=== PATIENT | female | born 1960 | race Caucasian/White ===

== ENCOUNTER 2017-05-14 15:52 | Emergency (ER) | payer OTHER ==
[~2017-05-14] VITALS: Ht 172.7 cm; Wt 114.1 kg
[~2017-05-14 15:52] MED LIST: ALLERGY10 M1 PO; ASPIR-TRIN325 M1 PO; BIOTIN10 MG PO; CALCIUM 600 MG1 EACH PO; CELEBREX200 MG PO; COLACE100 MG PO; CYMBALTA60 MG PO; Cymbalta PO; ESTROVEN ENER400 MCG PO; HAIR, SKIN & N1 EAC1 PO; LEVOTHYROXINE75 MCG PO; Levothroid,Synthroid PO; METFORMIN HCL1000 MG PO; MULTIPLE VITAM1 EACH PO; OMEPRAZOLE40 M1 PO; PERCOCET 5/31 TABLET PO; TOPAMAX PO; TRICOR145 MG PO; VITAMIN C1000 MG PO; Vicodin,Lortab 5/500 PO; Zestoretic,Prinzide PO; Zyrtec PO; [UNRECOGNIZED DRUG - OTHER] PO
[2017-05-14 16:36] LABS: MCH 22.3 PG (29.0-34.0); MCHC 30.6 G/DL (30.0-36.0); MCV 72.8 FL (83-99); MEAN PLAT.VOLUME 10.7 uM^3 (9.5-12.4); PLATELET COUNT 286 K/uL (156-360); RBC DIS.WIDTH-CV 16.6 % (11.8-14.6); RBC DIS.WIDTH-SD 42.9 % (39-53); RED BLOOD COUNT 4.67 M/uL (3.80-5.20); WHITE BLOOD COUNT 9.6 K/uL (4.1-10.2)
[2017-05-14 16:41] LABS: CHLORIDE 108 mEq/L (99-109); SODIUM 141 mEq/L (136-147)
[2017-05-14 16:42] LABS: GLUCOSE 102 mg/dL (70-99)
[2017-05-14 16:44] LABS: ANION GAP 9 MEQ/L (2-14)
[2017-05-14 16:46] LABS: GFR ESTIMATE (CALCULATED) > 59 mL/min/
[2017-05-14 16:47] LABS: UREA NITROGEN (BUN) 11 mg/dL (9-23)
[2017-05-14 16:52] LABS: TROP-I INTERPRETATION NEGATIVE; TROPONIN-I < 0.01 ng/mL (0.0-0.30)
[2017-05-14 18:39] VITALS: BP 126/81
== END 2017-05-14 18:44 | disposition left against medical advice (07) ==
LOC: EME 15:52
DX: I20.0 Unstable angina (principal); D64.9 Anemia, unspecified; Z82.49 Family history of ischemic heart disease and other diseases of the circulatory system; Z90.49 Acquired absence of other specified parts of digestive tract; Z98.84 Bariatric surgery status; Z90.710 Acquired absence of both cervix and uterus; Z79.84 Long term (current) use of oral hypoglycemic drugs; Z87.891 Personal history of nicotine dependence
CPT/HCPCS: 71020; 80048; 84484; 85027; 93005; 99281; 99284

== ENCOUNTER 2018-03-03 01:07 | Emergency (ER) | payer OTHER ==
[~2018-03-03] VITALS: Ht 167.6 cm; Wt 112.9 kg
[2018-03-03 01:45] LABS: HEMATOCRIT 34.9 % (36.0-46.0); HEMOGLOBIN 10.8 G/DL (11.9-15.5); MCHC 30.9 G/DL (30.0-36.0); MCV 70.9 FL (83-99); PLATELET COUNT 276 K/uL (156-360); RBC DIS.WIDTH-CV 17.7 % (11.8-14.6); RBC DIS.WIDTH-SD 44.6 % (39-53); RED BLOOD COUNT 4.92 M/uL (3.80-5.20); WHITE BLOOD COUNT 8.9 K/uL (4.1-10.2)
[2018-03-03 01:51] LABS: ALBUMIN 3.9 g/dL (3.2-4.8); CHLORIDE 108 mEq/L (99-109); POTASSIUM 3.6 mEq/L (3.7-5.4); SODIUM 141 mEq/L (136-147)
[2018-03-03 01:53] LABS: GLUCOSE 115 mg/dL (70-99); TOTAL PROTEIN 6.9 g/dL (6.4-8.3)
[2018-03-03 01:55] LABS: TOTAL BILIRUBIN 0.2 mg/dL (0.0-1.0)
[2018-03-03 01:57] LABS: ALKALINE PHOSPHATASE 98 IU/L (3-129); CREATININE 0.8 mg/dL (0.6-1.3); GFR ESTIMATE (CALCULATED) > 59 mL/min/
[2018-03-03 01:58] LABS: UREA NITROGEN (BUN) 9 mg/dL (9-23)
[2018-03-03 01:59] LABS: AST (GOT) 13 IU/L (2-34)
[2018-03-03 02:00] LABS: ALT (GPT) 14 IU/L (3-49)
[2018-03-03 02:07] LABS: QUANTITATIVE HCG 4.7 MIU/ML
[2018-03-03 03:40] LABS: LIPASE 21 U/L (1.0-51.0)
[2018-03-03 04:04] LABS: APPEARANCE CLEAR ((CLEAR)); BILIRUBIN NEGATIVE; BLOOD NEGATIVE; COLOR YELLOW ((YELLOW)); GLUCOSE (STRIP) NEGATIVE; KETONES NEGATIVE; LEUKOCYTES NEGATIVE; NITRITE NEGATIVE; PROTEIN (STRIP) NEGATIVE; SPECIFIC GRAVITY 1.023 (1.000-1.030); UCUL ADDED? NO; UROBILINOGEN 0.2 MG/DL (0.2-1.0)
[2018-03-03 05:11] VITALS: BP 127/75
== END 2018-03-03 05:11 | disposition home or self-care (01) ==
LOC: EME 01:07
DX: R10.10 Upper abdominal pain, unspecified (principal); K43.9 Ventral hernia without obstruction or gangrene; K40.20 Bilateral inguinal hernia, without obstruction or gangrene, not specified as recurrent; R19.7 Diarrhea, unspecified; D64.9 Anemia, unspecified; Z98.84 Bariatric surgery status; Z90.49 Acquired absence of other specified parts of digestive tract; Z90.710 Acquired absence of both cervix and uterus; R16.0 Hepatomegaly, not elsewhere classified; N20.0 Calculus of kidney; M47.894 Other spondylosis, thoracic region; Z79.84 Long term (current) use of oral hypoglycemic drugs; Z87.891 Personal history of nicotine dependence
CPT/HCPCS: 74177; 80053; 81003; 83690; 84702; 85027; 99281; 99285; J2270; J2405; J7030